=== PATIENT | female | born 1970 | race African-American/Black ===

== ENCOUNTER 2018-03-01 11:44 | Emergency (ER) | payer SELFPAY ==
[~2018-03-01] VITALS: Ht 170.2 cm; Wt 117.9 kg
[2018-03-01 12:33] VITALS: BP 172/88
[2018-03-01] MEDS ORDERED: KETOROLAC TROMETH 60MG/2ML VIAL IM ONE (13:00)
== END 2018-03-01 13:16 | disposition home or self-care (01) ==
LOC: ER 11:44
DX: G89.29 Other chronic pain (principal); M54.9 Dorsalgia, unspecified
CPT/HCPCS: 99282; J1885

== ENCOUNTER 2018-03-02 10:50 | Emergency (ER) | payer SELFPAY ==
[~2018-03-02] VITALS: Ht 170.2 cm; Wt 117.9 kg
[2018-03-02] MEDS ORDERED: KETOROLAC TROMETH 30 MG/ML 1ML VIAL IV ONE (11:30)
[2018-03-02] MEDS ORDERED: ONDANSETRON HCL 4 MG/2 ML VIAL IV ONE (11:30)
[2018-03-02] MEDS ORDERED: HYDROmorphone HCL 2 MG/ML VL IV ONE (11:30)
[2018-03-02 13:49] VITALS: BP 165/114
== END 2018-03-02 14:17 | disposition home or self-care (01) ==
LOC: EDBD 10:50 → ER 10:50
DX: M54.9 Dorsalgia, unspecified (principal); G89.29 Other chronic pain; Z90.710 Acquired absence of both cervix and uterus
CPT/HCPCS: 94761; 96374; 96375; 99284; J1170; J1885; J2405